=== PATIENT | male | born 1970 | race African-American/Black ===

== ENCOUNTER 2018-10-15 21:44 | Emergency (ER) | payer MEDICAID ==
[~2018-10-15] VITALS: Ht 177.8 cm; Wt 105.0 kg
[2018-10-15 21:51] VITALS: BP 125/85
== END 2018-10-16 02:00 | disposition left against medical advice (07) ==
LOC: ER 21:44
DX: Z53.21 Procedure and treatment not carried out due to patient leaving prior to being seen by health care provider (principal)
CPT/HCPCS: 93005